=== PATIENT | male | born 1970 | race Caucasian/White ===

== ENCOUNTER 2022-06-16 05:57 | Outpatient (CLI) | payer OTHER, SELFPAY ==
--- OUTSIDE RECORDS SUMMARY | 2022-06-16 06:00 | XMS_ITS | Encounter Summary ---
:1970 Author Organization [facility] Address [address] [place] [address] Care Team Providers Name Role Phone Unavailable Primary Care Provider Unavailable Encounter Details Date Type Department Care Team Description 09/20/2016 Hospital Encounter HX NO MAPPING Jill King M.B. B.S., Jareth, M.S. Social History Tobacco Use Types Packs/Day Years Used Date Smoking Tobacco: Never Assessed Sex Assigned at Date Recorded Not on file documented as of this encounter Plan of Treatment Not on filedocumented as of this encounter Visit Diagnoses Not on filedocumented in this encounter
--- OUTSIDE RECORDS SUMMARY | 2022-06-16 06:00 | XMS_ITS | Encounter Summary ---
:1970 Author Organization [facility] Address [address] [place] [address] Care Team Providers Name Role Phone Unavailable Primary Care Provider Unavailable Encounter Details Date Type Department Care Team Description 09/27/2007 Hospital Encounter HX [facility] Mio Ceballos M.D. [facility], [place], [place] [address] (Wo rk) Social History Tobacco Use Types Packs/Day Years Used Date Smoking Tobacco: Never Assessed Sex Assigned at Date Recorded Not on file documented as of this encounter Plan of Treatment Not on filedocumented as of this encounter Visit Diagnoses Not on filedocumented in this encounter
--- OUTSIDE RECORDS SUMMARY | 2022-06-16 06:00 | XMS_ITS | Encounter Summary ---
:1970 Author Organization [facility] Address [address] [place] [address] Care Team Providers Name Role Phone Elsewhere, Pcp Primary Care Provider Unavailable Reason for Visit Reason Onset Date Comments Outpatient COVID-19 Testing 07/15/2020 Encounter Details Date Type Department Care Team Description 07/15/2020 External Outreach Department of Daniel Britton Infect ion Upper Internal Medicine in J, D.O. Respiratory (Primary [place], [place] [address] Dx) [address] [place] [id number] Social History Tobacco Use Types Packs/Day Years Used Date Smoking Tobacco: Never Sex Assigned at Date Recorded Not on file documented as of this encounter Progress Notes Suad Malloy LMihaelaP.N. - 07/15/2020 3:51 PM CST Encounter created for the drive-through COVID-19 testing. CIATE PROFESSOR COMPUTER SCIENCE documented in this encounter Miscellaneous Notes Result Encounter Note - Syl Alcala M.D. - 07/18/2020 3:17 PM CST Result reviewed. Positive for COVID-19. Patient notified via portal. Patient lacks high risk features and will follow with PCP or public health. MAA - Please send CFCT Low Risk Letter CIATE PROFESSOR COMPUTER SCIENCE documented in this encounter Plan of Treatment Not on filedocumented as of this encounter Procedures Procedure Name Priority Date/Time Associated Diagnosis Comme nts SARS CORONAVIRUS-2 Routine 07/15/2020 4:03 PM Infection Upper Results for this RNA, V ASSOCIATE PROFESSOR COMPUTER SCIENCE Respiratory procedure are i n the results section. documented in this encounter Results (ABNORMAL) SARS Coronavirus-2 RNA, V Symptomatic (07/15/2020 4:03 PM ASSOCIATE PROFESSOR COMPUTER SCIENCE) [facility] Method Time Signature SARS-CoV-2 Swab, 07/17/2020 [facility] Specimen Nasopharynx 12:05 AM Source ASSOCIATE PROFESSOR COMPUTER SCIENCE SARS CoV-2 Detected (C) Undetected 07/17/2020 [facility] RNA, TMA 12:05 AM ASSOCIATE PROFESSOR COMPUTER SCIENCE Comment: SARS-CoV-2 RNA present. ----ADDITIONAL INFORMATION---- This test is performed using the Aptima SARS-CoV-2 assay ([employer] which has received Emergency Use Authori zation (EUA) by the U.S. Food and Drug Administration. Fact sheets for this Emergency Use Autho rization (EUA) assay can be found at the following links: For Healthcare Providers: https://www.Sho[employer] a.gov/media/298040/download For Patients: https://www.fda.gov/media/ 814266/download Specimen Anatomical Collection Method Collection Time Receive d Time (Source) Location / / Volume Laterality Varies 07/15/2020 4:03 PM 0 2:06 (Nasopharynx) ASSOCIATE PROFESSOR COMPUTER SCIENCE AM ASSOCIATE PROFESSOR COMPUTER SCIENCE Daniel Britton D.O. LAB MICROBIOLOGY - GENERAL O RDERABLES Performing Organization Address City/State/ZIP Code Phon e Number [facility]- [address] [place] [id number] [place] [address] [place] [address] [address] documented in this encounter Visit Diagnoses Diagnosis Infection Upper Respiratory - Primary documented in this encounter Additional Health Concerns Infection Onset Date Last Indicated Resolved Time COVID19 Pending 07/15/2020 07/15/2020 07/17/2020 12:06 AM ASSOCIATE PROFESSOR COMPUTER SCIENCE documented as of this encounter Care Teams Rubber Production Machine Operator Relationship Specialty Start Date End Date Elsewhere, Pcp PCP - General Family Medicine 07/15/20 documented as of this encounter
--- OUTSIDE RECORDS SUMMARY | 2022-06-16 06:00 | XMS_ITS | Encounter Summary ---
:1970 Author Organization [facility] Address [address] [place] [address] Care Team Providers Name Role Phone Unavailable Primary Care Provider Unavailable Encounter Details Date Type Department Care Team Description 09/20/2016 Hospital Encounter HX NO MAPPING Trent Day M.D. [address] [place], [place] [phone] (Wo rk) Social History Tobacco Use Types Packs/Day Years Used Date Smoking Tobacco: Never Assessed Sex Assigned at Date Recorded Not on file documented as of this encounter Plan of Treatment Not on filedocumented as of this encounter Procedures Procedure Name Priority Date/Time Associated Diagnosis Comme nts CT HEAD WITHOUT IV Routine 09/20/2016 7:17 PM Res ults for this CONTRAST CLINICAL ASSISTANT procedure are i n the results section. documented in this encounter Results CT Head without IV Contrast (09/20/2016 7:17 PM CLINICAL ASSISTANT) Anatomical Region Laterality Modality Head N/A Computed Tomography Specimen (Source) Anatomical Collection Method Collection Time Re ceived Time Location / / Volume Laterality 09/20/2016 7:17 PM CLINICAL ASSISTANT Addenda Addendum by Provider, Jareth Priest 09/20/2016 7:17 PM CLINICAL ASSISTANT RAD^^^OW CT Head w o contrast 09/20/2016 19:17:00 Impressions 09/21/2016 6:35 AM CLINICAL ASSISTANT 1. Bilateral paranasal sinus disease. 2. ??No appreciable acute intracranial a bnormality. If clinically indicated MRI the brain without and with IV gadolinium would be more sensitive for evaluation of possible occ ult intracranial abnormalities, including early ischemic changes not apparent on CT. Narrative 09/21/2016 6:35 AM CLINICAL ASSISTANT EXAM: ??CT Head w/o contrast AGE: ??46 years old. GENDER: ??Male. INDICATION: ??slurred speech, left arm n umbness for 15-20 minutes this evening). COMPARISON: ??September 09, 2016 FINDINGS: ??Preliminary report generated by [facility]. No appreciable intracranial mass or hemo rrhage. No midline shift. No hydrocephalus. No evidence of acute isch emia. If clinically indicated MRI the brain wi thout and with IV gadolinium would be more sensitive for evaluation o f possible occult intracranial mass clearly ischemic randle es not apparent on CT. Frothy mucosal secretions within the lewis ateral maxillary sinuses, polypoid mucosal thickening both maxilla ry sinuses, near complete opacification of the right sphenoid sinu s. Procedure Note Jet Vallejo M.D. / ProviderSalma M.D. - 02/26/2017 EXAM: CT Head w/o contrast AGE: [age] years old. GENDER: Male. INDICATION: slurred speech, left arm num bness for 15-20 minutes this evening). COMPARISON: September 09, 2016 FINDINGS: Preliminary report generated b y [facility] radiology. No appreciable intracranial mass or hemo rrhage. No midline shift. No hydrocephalus. No evidence of acute isch emia. If clinically indicated MRI the brain wi thout and with IV gadolinium would be more sensitive for evaluation o f possible occult intracranial mass clearly ischemic randle es not apparent on CT. Frothy mucosal secretions within the lewis ateral maxillary sinuses, polypoid mucosal thickening both maxilla ry sinuses, near complete opacification of the right sphenoid sinu s. IMPRESSION: 1. Bilateral paranasal sinus disease. 2. No appreciable acute intracranial abn ormality. If clinically indicated MRI the brain without and with IV gadolinium would be more sensitive for evaluation of possible occ ult intracranial abnormalities, including early ischemic changes not apparent on CT. Marco Antonio Leal(Jose) IMLucas CT PROCEDURES documented in this encounter Visit Diagnoses Not on filedocumented in this encounter
--- OUTSIDE RECORDS SUMMARY | 2022-06-16 06:00 | XMS_ITS | Encounter Summary ---
:1970 Author Organization [facility] Address [address] [place] [address] Care Team Providers Name Role Phone Unavailable Primary Care Provider Unavailable Encounter Details Date Type Department Care Team Description 03/12/2008 Hospital Encounter HX [facility] Mio Ceballos M.D. [facility], [place], [place] [address] (Wo rk) Social History Tobacco Use Types Packs/Day Years Used Date Smoking Tobacco: Never Assessed Sex Assigned at Date Recorded Not on file documented as of this encounter Plan of Treatment Not on filedocumented as of this encounter Visit Diagnoses Not on filedocumented in this encounter
--- OUTSIDE RECORDS SUMMARY | 2022-06-16 06:00 | XMS_ITS | Encounter Summary ---
:1970 Author Organization [facility] Address [address] [place] [address] Care Team Providers Name Role Phone Unavailable Primary Care Provider Unavailable Encounter Details Date Type Department Care Team Description 09/21/2016 Hospital Encounter HX NO MAPPING Jill King M.B. B.S., Jareth, M.S. Social History Tobacco Use Types Packs/Day Years Used Date Smoking Tobacco: Never Assessed Sex Assigned at Date Recorded Not on file documented as of this encounter Plan of Treatment Not on filedocumented as of this encounter Procedures Procedure Name Priority Date/Time Associated Diagnosis Comme nts US CAROTID Routine 09/21/2016 7:09 AM Results f or this BILATERAL PURCHASE REQUEST EDITOR procedure are i n the results section. documented in this encounter Results US Carotid Bilateral (09/21/2016 7:09 AM PURCHASE REQUEST EDITOR) Anatomical Region Laterality Modality Head and Neck Bilateral Ultrasound Specimen (Source) Anatomical Collection Method Collection Time Re ceived Time Location / / Volume Laterality 09/21/2016 7:09 AM PURCHASE REQUEST EDITOR Addenda Addendum by Provider, Jareth Priest 09/21/2016 7:09 AM PURCHASE REQUEST EDITOR RAD^^^OW US Carotid Duplex Bilat 09/21/2016 07:09:02 Impressions 09/21/2016 8:10 AM PURCHASE REQUEST EDITOR 1. Slow velocities of right internal car otid artery. Suggest CTA or MRA of head/neck. FINDINGS: There is no carotid stenosis s een in the neck. However, the right internal carotid artery velocities are much slower than usual. For example, the mid internal carotid ar brittany has peak systolic velocity of 13 cm/s. Findings are nonspe cific, though can be seen with high-grade stenosis intracranially. Dissection is another possibility. Suggest CTA or MRA of head/ neck. Minimal amount of scattered atheromatous plaque. ??In the mid neck, bilateral vertebral arteries have normal antegrade flow. Measurement of a carotid stenosis, if pr esent, is based on velocity parameters that compare the residual int ernal carotid luminal diameter with that of the normal distal ICA in accordance with [place] Symptomatic Carotid Endarterect victor m Trial (NASCET). Narrative 09/21/2016 8:10 AM PURCHASE REQUEST EDITOR EXAM: US Carotid Duplex Bilat INDICATION: Transient Ischemic Attack/TI A AGE: 46 years-old COMPARISON: None. Procedure Note Rodrigo Lund M.D. / Zayda Bourgeois M.D. - 02/26/2017 EXAM: US Carotid Duplex Bilat INDICATION: Transient Ischemic Attack/TI A AGE: 46 years-old COMPARISON: None. IMPRESSION: 1. Slow velocities of right internal car otid artery. Suggest CTA or MRA of head/neck. FINDINGS: There is no carotid stenosis s een in the neck. However, the right internal carotid artery velocities are much slower than usual. For example, the mid internal carotid ar brittany has peak systolic velocity of 13 cm/s. Findings are nonspe cific, though can be seen with high-grade stenosis intracranially. Dissection is another possibility. Suggest CTA or MRA of head/ neck. Minimal amount of scattered atheromatous plaque. In the mid neck, bilateral vertebral arteries have normal antegrade flow. Measurement of a carotid stenosis, if pr esent, is based on velocity parameters that compare the residual int ernal carotid luminal diameter with that of the normal distal ICA in accordance with [place] Symptomatic Carotid Endarterect victor m Trial (NASCET). Suad Donnelly R.V.T., RGeorgieSMihaela IMG US PROCEDURES documented in this encounter Visit Diagnoses Not on filedocumented in this encounter
--- OUTSIDE RECORDS SUMMARY | 2022-06-16 06:00 | XMS_ITS | Encounter Summary ---
:1970 Author Organization [facility] Address [address] [place] [address] Care Team Providers Name Role Phone Unavailable Primary Care Provider Unavailable Encounter Details Date Type Department Care Team Description 09/27/2016 Hospital Encounter HX NO MAPPING Roc Rivers M.D. [address] [place], [place] [address] (Wo rk) Social History Tobacco Use Types Packs/Day Years Used Date Smoking Tobacco: Never Assessed Sex Assigned at Date Recorded Not on file documented as of this encounter Plan of Treatment Not on filedocumented as of this encounter Visit Diagnoses Not on filedocumented in this encounter
--- OUTSIDE RECORDS SUMMARY | 2022-06-16 06:00 | XMS_ITS | Encounter Summary ---
:1970 Author Organization [facility] Address [address] [place] [address] Care Team Providers Name Role Phone Unavailable Primary Care Provider Unavailable Encounter Details Date Type Department Care Team Description 05/14/2008 Hospital Encounter HX [facility] Mio Ceballos M.D. [facility], [place], [place] [phone] (Wo rk) Social History Tobacco Use Types Packs/Day Years Used Date Smoking Tobacco: Never Assessed Sex Assigned at Date Recorded Not on file documented as of this encounter Plan of Treatment Not on filedocumented as of this encounter Visit Diagnoses Not on filedocumented in this encounter
--- OUTSIDE RECORDS SUMMARY | 2022-06-16 06:00 | XMS_ITS | Encounter Summary ---
:1970 Author Organization [facility] Address [address] [place] [address] Care Team Providers Name Role Phone Unavailable [...] Name Priority Date/Time Associated Diagnosis Comme nts MR NECK ANGIOGRAM Routine 09/21/2016 11:00 AM Res ults for this WITHOUT AND WITH IV PLATE FITTER procedur e are in CONTRAST the results section. MR BRAIN WITHOUT Routine 09/21/2016 9:17 AM Resul ts for this AND WITH IV PLATE FITTER procedure are i n CONTRAST the results section. MR BRAIN ANGIOGRAM Routine 09/21/2016 9:15 AM Res ults for this WITHOUT IV CONTRAST PLATE FITTER procedur e are in the results section. DX ORBITS 4+ VIEWS Routine 09/21/2016 8:25 AM Res ults for this PLATE FITTER procedure are i n the results section. documented in this encounter Results MR Neck Angiogram without and with IV Contrast (09/21/2016 11:00 AM PLATE FITTER) Anatomical Region Laterality Modality Neck N/A Magnetic Resonance Specimen (Source) Anatomical Collection Method Collection Time Re ceived Time Location / / Volume Laterality 09/21/2016 11:00 AM PLATE FITTER Addenda Addendum by Provider, Jareth Priest 09/21/2016 11:00 AM PLATE FITTER RAD^^^OW MR Angio Neck w ??and w o contrast 09/21/2016 11:00:00 Impressions 09/21/2016 12:25 PM PLATE FITTER 1. 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 2. 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 3. Acute sinusitis. FINDINGS: MRI Brain: There are 2 punctate acute in farcts within the right holman radiata superior to the basal jonnathan glia (series 4 images 24, 27). These are in the right MCA distribu tion. There is mild chronic microangiopathy within the right peritri gonal periventricular white matter (series 6 image 23). Negative for hemorrhage, herniation, hydrocephalus, mass, or atrophy. MRA Neck: ??There is dissection of the r ight internal carotid artery that begins 4 cm from its origin and ext ends intracranially to its terminus. This is occlusive over 1 cm se gment just before it becomes intracranially. Along either side of the occlusion is narrowing of the true lumen. Aortic arch has conventi onal branch configuration. Vertebral arteries are left-dominant. Th e left carotids and lateral vertebrals are negative for focal stenos is, vessel cutoff, aneurysm, or vascular malformation. MRA Head: As described above, there is d issection of the right internal carotid artery extending to the carotid terminus. Intracranial arterial flow signal and mo rphology are otherwise negative for aneurysm or vascular malfor mation. Left posterior communicating artery is present. Right p osterior and anterior communicating arteries are absent or hyp oplastic. Other findings: The right sphenoid sinus is nearly completely opacified with inspissated secretions, f ungal infection, or polyp. Right maxillary sinus has air-fluid leve ls. Bilateral maxillary sinuses have bubbly secretions. Findings can be seen with acute sinusitis. Measurement of a carotid stenosis, if pr esent, is based on length parameters that compare the residual int ernal carotid luminal diameter with that of the normal distal ICA in accordance with [place] Symptomatic Carotid Endarterect victor m Trial (NASCET). Results discussed with Dr. Mirela garcia 09/21/2016 12:23 PM. Narrative 09/21/2016 12:25 PM PLATE FITTER EXAM: MR Brain w/ + w/o contrast, MR Ang io Neck w/ + w/o contrast, MR Angio Brain w/o contrast INDICATION: TIA AGE: 46 years-old TECHNIQUE: Without and with IV 8.1 mL Ga davist contrast. ??Brain MRI without and with contrast. Head MRA with out contrast. Neck MRA with and without contrast. Please see hospita list note regarding nurse stat called towards the end of this exam . COMPARISON: CT head 09/20/16. Procedure Note Rodrigo Lund M.D. / Zayda Bourgeois M.D. - 02/26/2017 EXAM: MR Brain w/ + w/o contrast, MR Ang io Neck w/ + w/o contrast, MR Angio Brain w/o contrast INDICATION: TIA AGE: 46 years-old TECHNIQUE: Without and with IV 8.1 mL Ga davist contrast. Brain MRI without and with contrast. Head MRA with out contrast. Neck MRA with and without contrast. Please see hospita list note regarding nurse stat called towards the end of this exam . COMPARISON: CT head 09/20/16. IMPRESSION: 1. 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 2. 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 3. Acute sinusitis. FINDINGS: MRI Brain: There are 2 punctate acute in farcts within the right holman radiata superior to the basal jonnathan glia (series 4 images 24, 27). These are in the right MCA distribu tion. There is mild chronic microangiopathy within the right peritri gonal periventricular white matter (series 6 image 23). Negative for hemorrhage, herniation, hydrocephalus, mass, or atrophy. MRA Neck: There is dissection of the rig ht internal carotid artery that begins 4 cm from its origin and ext ends intracranially to its terminus. This is occlusive over 1 cm se gment just before it becomes intracranially. Along either side of the occlusion is narrowing of the true lumen. Aortic arch has conventi onal branch configuration. Vertebral arteries are left-dominant. Th e left carotids and lateral vertebrals are negative for focal stenos is, vessel cutoff, aneurysm, or vascular malformation. MRA Head: As described above, there is d issection of the right internal carotid artery extending to the carotid terminus. Intracranial arterial flow signal and mo rphology are otherwise negative for aneurysm or vascular malfor mation. Left posterior communicating artery is present. Right p osterior and anterior communicating arteries are absent or hyp oplastic. Other findings: The right sphenoid sinus is nearly completely opacified with inspissated secretions, f ungal infection, or polyp. Right maxillary sinus has air-fluid leve ls. Bilateral maxillary sinuses have bubbly secretions. Findings can be seen with acute sinusitis. Measurement of a carotid stenosis, if pr esent, is based on length parameters that compare the residual int ernal carotid luminal diameter with that of the normal distal ICA in accordance with [place] Symptomatic Carotid Endarterect victor m Trial (NASCET). Results discussed with Dr. Mirela garcia 09/21/2016 12:23 PM. Isaias Leal(R) IMG MRI PROCEDURES MR Brain without and with IV Contrast (09/21/2016 9:17 AM PLATE FITTER) Anatomical Region Laterality Modality Head, Brain N/A Magnetic Resonance Specimen (Source) Anatomical Collection Method Collection Time Re ceived Time Location / / Volume Laterality 09/21/2016 9:17 AM PLATE FITTER Addenda Addendum by Provider, Jareth Priest 09/21/2016 9:17 AM PLATE FITTER RAD^^^OW MR Brain w ??and w o contrast 09/21/2016 09:17:47 Impressions 09/21/2016 12:25 PM PLATE FITTER 1. 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 2. 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 3. Acute sinusitis. FINDINGS: MRI Brain: There are 2 punctate acute in farcts within the right holman radiata superior to the basal jonnathan glia (series 4 images 24, 27). These are in the right MCA distribu tion. There is mild chronic microangiopathy within the right peritri gonal periventricular white matter (series 6 image 23). Negative for hemorrhage, herniation, hydrocephalus, mass, or atrophy. MRA Neck: ??There is dissection of the r ight internal carotid artery that begins 4 cm from its origin and ext ends intracranially to its terminus. This is occlusive over 1 cm se gment just before it becomes intracranially. Along either side of the occlusion is narrowing of the true lumen. Aortic arch has conventi onal branch configuration. Vertebral arteries are left-dominant. Th e left carotids and lateral vertebrals are negative for focal stenos is, vessel cutoff, aneurysm, or vascular malformation. MRA Head: As described above, there is d issection of the right internal carotid artery extending to the carotid terminus. Intracranial arterial flow signal and mo rphology are otherwise negative for aneurysm or vascular malfor mation. Left posterior communicating artery is present. Right p osterior and anterior communicating arteries are absent or hyp oplastic. Other findings: The right sphenoid sinus is nearly completely opacified with inspissated secretions, f ungal infection, or polyp. Right maxillary sinus has air-fluid leve ls. Bilateral maxillary sinuses have bubbly secretions. Findings can be seen with acute sinusitis. Measurement of a carotid stenosis, if pr esent, is based on length parameters that compare the residual int ernal carotid luminal diameter with that of the normal distal ICA in accordance with [place] Symptomatic Carotid Endarterect victor m Trial (NASCET). Results discussed with Dr. Mirela garcia 09/21/2016 12:23 PM. Narrative 09/21/2016 12:25 PM PLATE FITTER EXAM: MR Brain w/ + w/o contrast, MR Ang io Neck w/ + w/o contrast, MR Angio Brain w/o contrast INDICATION: TIA AGE: 46 years-old TECHNIQUE: Without and with IV 8.1 mL Ga davist contrast. ??Brain MRI without and with contrast. Head MRA with out contrast. Neck MRA with and without contrast. Please see hospita list note regarding nurse stat called towards the end of this exam . COMPARISON: CT head 09/20/16. Procedure Note Rodrigo Lund M.D. / Zayda Bourgeois M.D. - 02/26/2017 EXAM: MR Brain w/ + w/o contrast, MR Ang io Neck w/ + w/o contrast, MR Angio Brain w/o contrast INDICATION: TIA AGE: 46 years-old TECHNIQUE: Without and with IV 8.1 mL Ga davist contrast. Brain MRI without and with contrast. Head MRA with out contrast. Neck MRA with and without contrast. Please see hospita list note regarding nurse stat called towards the end of this exam . COMPARISON: CT head 09/20/16. IMPRESSION: 1. 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 2. 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 3. Acute sinusitis. FINDINGS: MRI Brain: There are 2 punctate acute in farcts within the right holman radiata superior to the basal jonnathan glia (series 4 images 24, 27). These are in the right MCA distribu tion. There is mild chronic microangiopathy within the right peritri gonal periventricular white matter (series 6 image 23). Negative for hemorrhage, herniation, hydrocephalus, mass, or atrophy. MRA Neck: There is dissection of the rig ht internal carotid artery that begins 4 cm from its origin and ext ends intracranially to its terminus. This is occlusive over 1 cm se gment just before it becomes intracranially. Along either side of the occlusion is narrowing of the true lumen. Aortic arch has conventi onal branch configuration. Vertebral arteries are left-dominant. Th e left carotids and lateral vertebrals are negative for focal stenos is, vessel cutoff, aneurysm, or vascular malformation. MRA Head: As described above, there is d issection of the right internal carotid artery extending to the carotid terminus. Intracranial arterial flow signal and mo rphology are otherwise negative for aneurysm or vascular malfor mation. Left posterior communicating artery is present. Right p osterior and anterior communicating arteries are absent or hyp oplastic. Other findings: The right sphenoid sinus is nearly completely opacified with inspissated secretions, f ungal infection, or polyp. Right maxillary sinus has air-fluid leve ls. Bilateral maxillary sinuses have bubbly secretions. Findings can be seen with acute sinusitis. Measurement of a carotid stenosis, if pr esent, is based on length parameters that compare the residual int ernal carotid luminal diameter with that of the normal distal ICA in accordance with [place] Symptomatic Carotid Endarterect victor m Trial (NASCET). Results discussed with Dr. Mirela garcia 09/21/2016 12:23 PM. Isaias Leal(Jose) BLANCA MRI PROCEDURES MR Brain Angiogram without IV Contrast (09/21/2016 9:15 AM PLATE FITTER) Anatomical Region Laterality Modality Head, Brain N/A Magnetic Resonance Specimen (Source) Anatomical Collection Method Collection Time Re ceived Time Location / / Volume Laterality 09/21/2016 9:15 AM PLATE FITTER Addenda Addendum by Provider, Jareth Priest 09/21/2016 9:15 AM PLATE FITTER RAD^^^OW MR Angio Brain w o contrast 09/21/2016 09:15:00 Impressions 09/21/2016 12:25 PM PLATE FITTER 1. 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 2. 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 3. Acute sinusitis. FINDINGS: MRI Brain: There are 2 punctate acute in farcts within the right holman radiata superior to the basal jonnathan glia (series 4 images 24, 27). These are in the right MCA distribu tion. There is mild chronic microangiopathy within the right peritri gonal periventricular white matter (series 6 image 23). Negative for hemorrhage, herniation, hydrocephalus, mass, or atrophy. MRA Neck: ??There is dissection of the r ight internal carotid artery that begins 4 cm from its origin and ext ends intracranially to its terminus. This is occlusive over 1 cm se gment just before it becomes intracranially. Along either side of the occlusion is narrowing of the true lumen. Aortic arch has conventi onal branch configuration. Vertebral arteries are left-dominant. Th e left carotids and lateral vertebrals are negative for focal stenos is, vessel cutoff, aneurysm, or vascular malformation. MRA Head: As described above, there is d issection of the right internal carotid artery extending to the carotid terminus. Intracranial arterial flow signal and mo rphology are otherwise negative for aneurysm or vascular malfor mation. Left posterior communicating artery is present. Right p osterior and anterior communicating arteries are absent or hyp oplastic. Other findings: The right sphenoid sinus is nearly completely opacified with inspissated secretions, f ungal infection, or polyp. Right maxillary sinus has air-fluid leve ls. Bilateral maxillary sinuses have bubbly secretions. Findings can be seen with acute sinusitis. Measurement of a carotid stenosis, if pr esent, is based on length parameters that compare the residual int ernal carotid luminal diameter with that of the normal distal ICA in accordance with [place] Symptomatic Carotid Endarterect victor m Trial (NASCET). Results discussed with Dr. Mirela garcia 09/21/2016 12:23 PM. Narrative 09/21/2016 12:25 PM PLATE FITTER EXAM: MR Brain w/ + w/o contrast, MR Ang io Neck w/ + w/o contrast, MR Angio Brain w/o contrast INDICATION: TIA AGE: 46 years-old TECHNIQUE: Without and with IV 8.1 mL Ga davist contrast. ??Brain MRI without and with contrast. Head MRA with out contrast. Neck MRA with and without contrast. Please see hospita list note regarding nurse stat called towards the end of this exam . COMPARISON: CT head 09/20/16. Procedure Note Rodrigo Lund M.D. / Zayda Bourgeois M.D. - 02/26/2017 EXAM: MR Brain w/ + w/o contrast, MR Ang io Neck w/ + w/o contrast, MR Angio Brain w/o contrast INDICATION: TIA AGE: 46 years-old TECHNIQUE: Without and with IV 8.1 mL Ga davist contrast. Brain MRI without and with contrast. Head MRA with out contrast. Neck MRA with and without contrast. Please see hospita list note regarding nurse stat called towards the end of this exam . COMPARISON: CT head 09/20/16. IMPRESSION: 1. 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 2. 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 3. Acute sinusitis. FINDINGS: MRI Brain: There are 2 punctate acute in farcts within the right holman radiata superior to the basal jonnathan glia (series 4 images 24, 27). These are in the right MCA distribu tion. There is mild chronic microangiopathy within the right peritri gonal periventricular white matter (series 6 image 23). Negative for hemorrhage, herniation, hydrocephalus, mass, or atrophy. MRA Neck: There is dissection of the rig ht internal carotid artery that begins 4 cm from its origin and ext ends intracranially to its terminus. This is occlusive over 1 cm se gment just before it becomes intracranially. Along either side of the occlusion is narrowing of the true lumen. Aortic arch has conventi onal branch configuration. Vertebral arteries are left-dominant. Th e left carotids and lateral vertebrals are negative for focal stenos is, vessel cutoff, aneurysm, or vascular malformation. MRA Head: As described above, there is d issection of the right internal carotid artery extending to the carotid terminus. Intracranial arterial flow signal and mo rphology are otherwise negative for aneurysm or vascular malfor mation. Left posterior communicating artery is present. Right p osterior and anterior communicating arteries are absent or hyp oplastic. Other findings: The right sphenoid sinus is nearly completely opacified with inspissated secretions, f ungal infection, or polyp. Right maxillary sinus has air-fluid leve ls. Bilateral maxillary sinuses have bubbly secretions. Findings can be seen with acute sinusitis. Measurement of a carotid stenosis, if pr esent, is based on length parameters that compare the residual int ernal carotid luminal diameter with that of the normal distal ICA in accordance with [place] Symptomatic Carotid Endarterect victor m Trial (NASCET). Results discussed with Dr. Mirela garcia 09/21/2016 12:23 PM. Isaias Leal(R) IMG MRI PROCEDURES DX Orbits 4+ Views (09/21/2016 8:25 AM PLATE FITTER) Anatomical Region Laterality Modality Skull N/A Radiographic Imaging Specimen (Source) Anatomical Collection Method Collection Time Re ceived Time Location / / Volume Laterality 09/21/2016 8:25 AM PLATE FITTER Addenda Addendum by Provider, Jareth Priest 09/21/2016 8:25 AM PLATE FITTER RAD^^^OW XR Orbits MRI Screening 09/21/2016 08:25:00 Impressions 09/21/2016 8:50 AM PLATE FITTER 1. ??No radiopaque foreign bodies in the bilateral orbits. Narrative 09/21/2016 8:50 AM PLATE FITTER EXAM: ??XR Orbits MRI Screening. DEMOGRAPHICS: ??46 years Male. 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 COMPARISON: ??None available FINDINGS: ??No radiopaque foreign bodies within the bilateral orbits. Procedure Note Jet Vallejo M.D. / ProviderSalma M.D. - 02/26/2017 EXAM: XR Orbits MRI Screening. DEMOGRAPHICS: 46 years Male. 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 COMPARISON: None available FINDINGS: No radiopaque foreign bodies w ithin the bilateral orbits. IMPRESSION: 1. No radiopaque foreign bodies in the b ilateral orbits. Denise Leal(R)(CT), RMihaelaT.(R) IMG DIAGNOSTIC IMAG ING PROCEDURES documented in this encounter Visit Diagnoses Not on filedocumented in this encounter
--- OUTSIDE RECORDS SUMMARY | 2022-06-16 06:00 | XMS_ITS | Encounter Summary ---
:1970 Author Organization [facility] Address [address] [place] [address] Care Team Providers Name Role Phone Unavailable Primary Care Provider Unavailable Encounter Details Date Type Department Care Team Description 10/22/2007 Hospital Encounter HX [facility] Mio Ceballos M.D. [facility], [place], [place] [address] (Wo rk) Social History Tobacco Use Types Packs/Day Years Used Date Smoking Tobacco: Never Assessed Sex Assigned at Date Recorded Not on file documented as of this encounter Plan of Treatment Not on filedocumented as of this encounter Visit Diagnoses Not on filedocumented in this encounter
--- OUTSIDE RECORDS SUMMARY | 2022-06-16 06:00 | XMS_ITS | Encounter Summary ---
:1970 Author Organization [facility] Address [address] [place] [address] Care Team Providers Name Role Phone Unavailable Primary Care Provider Unavailable Encounter Details Date Type Department Care Team Description 09/09/2016 Hospital Encounter HX NO MAPPING Roc Rivers M.D. [address] [place], [place] [id number] (Wo rk) Social History Tobacco Use Types Packs/Day Years Used Date Smoking Tobacco: Never Assessed Sex Assigned at Date Recorded Not on file documented as of this encounter Plan of Treatment Not on filedocumented as of this encounter Visit Diagnoses Not on filedocumented in this encounter
--- OUTSIDE RECORDS SUMMARY | 2022-06-16 06:00 | XMS_ITS | Encounter Summary ---
:[address] [facility] Address [address] [place] [address] Care Team Providers Name Role Phone Unavailable Primary Care Provider Unavailable Encounter Details Date Type Department Care Team Description 12/20/2007 Hospital Encounter HX [facility] Mio Ceballos M.D. [facility], [place], [place] [address] (Wo rk) Social History Tobacco Use Types Packs/Day Years Used Date Smoking Tobacco: Never Assessed Sex Assigned at Date Recorded Not on file documented as of this encounter Plan of Treatment Not on filedocumented as of this encounter Visit Diagnoses Not on filedocumented in this encounter
--- OUTSIDE RECORDS SUMMARY | 2022-06-16 06:00 | XMS_ITS | Encounter Summary ---
:1970 Author Organization [facility] Address [address] [place] [address] Care Team Providers Name Role Phone Elsewhere, Pcp Primary Care Provider Unavailable Encounter Details Date Type Department Care Team Description 07/15/2020 Admin Visit Department of Family Medicine, [address] [address] [facility] [phone] Social History Tobacco Use Types Packs/Day Years Used Date Smoking Tobacco: Never Sex Assigned at Date Recorded Not on file documented as of this encounter Plan of Treatment Not on filedocumented as of this encounter Visit Diagnoses Not on filedocumented in this encounter Additional Health Concerns Infection Onset Date Last Indicated Resolved Time COVID19 Pending 07/15/2020 07/15/2020 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
--- OUTSIDE RECORDS SUMMARY | 2022-06-16 06:00 | XMS_ITS | Clinical Summary ---
:1970 Author Organization [facility] Address [address] [place] [address] Care Team Providers Name Role Phone Elsewhere, Pcp Primary Care Provider Unavailable Source Comments Patient records contain information from all sites at [facility]. For routine questions regarding patient records, call [phone] during business hours, M-F 8:00 AM - 5:00 PM Central Time. Record requests for emergency care only can be directed to [phone] at any time.[facility] Social History Tobacco Use Types Packs/Day Years Used Date Smoking Tobacco: Never Sex Assigned at Date Recorded Not on file Plan of Treatment Health Maintenance Due Date Last Done Comments CT Colonography 1970 Cologuard 1970 Colonoscopy 1970 Colorectal Cancer Screening 1970 FIT 1970 HIV Screening 1970 Hepatitis B Vaccines (1 of 3 1972 - 3-dose series) Hepatitis C Screening 1970 Creatinine Level 08/21/2019 08/21/2018 Potassium Level 08/21/2019 08/21/2018 Sodium Level 08/21/2019 08/21/2018 COVID-19 Vaccine (3 - Booster 02/25/2021 12/31/2020, for Pfizer series) 12/09/2020 DTaP,Tdap,and Td Vaccines (2 03/10/2021 03/10/2011 - Td or Tdap) Fasting Glucose for Diabetes 08/21/2021 08/21/2018 Screening Depression Screening (Annual 09/10/2021 PHQ-2) Zoster Vaccines (1 of 2) 01/07/2022 Influenza Vaccine (#1) 2022 Lipid (Cholesterol) Screening 08/21/2023 08/21/2018 Pneumococcal vaccine (0-64 Aged Out No lo nger eligible based years) on patient's age to complete this to [facility] Insurance Payer Benefit Plan / Subscriber ID Effective Dates Phone Addre ss Type Group CIG[employer] CIGNA CHOICE [id number] 2018-Irvin [phone] [address] PPO FUND HRA TARIK t [facility] [id number] Care Teams Licensed Prosthetist/Orthotist Relationship Specialty Start Date End Date Elsewhere, Pcp PCP - General Family Medicine 07/15/20
--- OUTSIDE RECORDS SUMMARY | 2022-06-16 06:00 | XMS_ITS | Encounter Summary ---
:1970 Author Organization [facility] Address [address] [place] [address] Care Team Providers Name Role Phone Unavailable Primary Care Provider Unavailable Encounter Details Date Type Department Care Team Description 07/19/2007 Hospital Encounter HX [facility] Mio Ceballos M.D. [facility], [place], [place] [address] (Wo rk) Social History Tobacco Use Types Packs/Day Years Used Date Smoking Tobacco: Never Assessed Sex Assigned at Date Recorded Not on file documented as of this encounter Plan of Treatment Not on filedocumented as of this encounter Visit Diagnoses Not on filedocumented in this encounter
--- OUTSIDE RECORDS SUMMARY | 2022-06-16 06:02 | XMS_ITS | Clinical Summary ---
:1970 Author Organization [facility] [place] [address] Care Team Providers Name Role Phone Clinic, [facility] Primary Care Provider [phone] Allergies No known active allergies Medications Medication Sig Dispensed Refills Start Date End Date Status aspirin chewable 81 mg Take 81 mg by 0 Active chewable tablet mouth once daily with a meal. 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 Overview: Right Internal Carotid Artery Resolved Problems Problem Noted Date Resolved Date Rectal bleeding 06/05/2017 07/17/2017 Anticoagulation monitoring, INR range 2-3 09/27/2016 11/28/2016 Vision blurred 09/21/2016 12/11/2016 Overview: Right History of TIA (transient ischemic attack) 09/21/2016 10/03/2016 Immunizations Name Administration Dates Next Due Tdap 03/10/2011 Family History Medical History Relation Name Comments Diabetes Father Diabetes Paternal Grandmother Hypertension Paternal Grandmother Relation Name Status Comments Father Alive Mother Alive Paternal Grandmother Social History Tobacco Use Types Packs/Day Years Used Date Never Smoker Smokeless Tobacco: Never Used Tobacco Cessation: Counseling Given: Yes Alcohol Use Standard Drinks/Week Comments Not Currently 0 (1 standard drink = 0.6 oz pure alcoho l) occasional Sex Assigned at Date Recorded Not on file Obstetrics History Last Filed Vital Signs Vital Sign Reading Time Taken Comments Blood Pressure 132/88 10/18/2021 2:52 PM CATTERY OPERATOR Pulse 84 10/18/2021 2:22 PM CATTERY OPERATOR Temperature 36.9 ??C (98.5 ??F) 09/27/2016 12:56 AM CATTERY OPERATOR Respiratory Rate 16 10/28/2020 2:56 PM CATTERY OPERATOR Oxygen Saturation 97% 10/18/2021 2:22 PM CATTERY OPERATOR Inhaled Oxygen Concentration - - Weight 76.8 kg (169 lb 4.8 oz) 10/18/2021 2:22 PM CATTERY OPERATOR Height 166 cm (5' 5.35) 10/18/2021 2:22 PM CATTERY OPERATOR Body Mass Index 27.87 10/18/2021 2:22 PM CATTERY OPERATOR Plan of Treatment Health Maintenance Due Date Last Done Comments Hepatitis C screening for age 0401[birth year]07[birth year]1990 18-79 Colonoscopy through age 75 01/07/2017 Tetanus booster 03/10/2021 03/10/2011, 03/10/2011 COVID-19 vaccine series (3 - 06/02/2021 12/31/2020, 021 Booster for Pfizer series) Depression screening for age 12+ 10/28/2021 10/28/2020, 08/2018, 07/17/2017, Additional history exists Zoster (shingles) series for age 0401/07/2022 50+ (1 of 2) Influenza for age 50-64 05/11/2022 BMI (ht and wt on same day) for 10/18/2022 10/18/2021, 10/11, age 18+ 11/10/2019, Additional history exists Lipids for age 45-75 08/21/2023 08/21/2018, 09/21/2016, 03/10/2011, Additional history exists Tdap Completed 03/10/2011 Results Not on filefrom Last 3 Months Insurance Payer Benefit Plan / Subscriber ID Effective Dates Phone Addre ss Type Group [employer] [id number] 2018-Prese [address] nt [place] [id number] [id number] (Home) [place] [phone] [address] (Work) [place] [address] [employer] Employer 09/10/2000 [phone] ATT N [employer] (Work) PAYABLE 2 [place] [id number] Advance Directives Latest Code Status on File Code Status Date Activated Date Inactivated Comments Full Code 09/21/2016 6:49 PM 09/25/2016 5:31 PM Code Status Discussion: Discussed Full Code 09/20/2016 11:04 PM 09/21/2016 6:20 PM Care Teams Systems Consultant Relationship Specialty Start Date End Date Clinic, [facility] PCP - General 05/10/21 [address] [facility] E[place] [address]
== END 2022-06-16 05:58 | disposition home or self-care (01) ==
PROVIDERS: PCP Family Medicine; Visit Provider Internal Medicine
DX: Z12.11 Encounter for screening for malignant neoplasm of colon (principal); K64.8 Other hemorrhoids
CPT/HCPCS: 45378; J2250; J3010

== ENCOUNTER 2023-04-12 11:10 | Outpatient (CLI) | payer OTHER, SELFPAY | END 2023-04-12 11:11 | disposition home or self-care (01) | PROVIDERS: PCP Family Medicine; Visit Provider Family Medicine | DX: I10 Essential (primary) hypertension (principal); Z12.5 Encounter for screening for malignant neoplasm of prostate | CPT/HCPCS: 80048; 80061; 84153 ==

== ENCOUNTER 2024-04-14 14:43 | Outpatient (CLI) | payer OTHER, SELFPAY ==
--- OUTSIDE RECORDS SUMMARY | 2024-04-14 14:47 | XMS_ITS | Clinical Summary ---
Author Organization [facility] Address [place], [place] [address] Care Team Providers Care Time Motion Analyst Name Role Phone Clinic, [facility] Primary Care Pro vider Allergies No known active allergies Medications Medication Sig Dispensed Refills Start Date End Date Status aspirin chewable 81 mg chewable tablet Take 81 mg by mouth once daily with a meal. Active amLODIPine (NORVASC) 5 mg tablet Take 5 mg by mouth once daily. 10/30/2023 Active escitalopram oxalate (LEXAPRO) 10 mg tablet Take 10 mg by mouth every morning. 11/21/2023 Active lisinopriL (PRINIVIL; ZESTRIL) 20 mg tablet Take 20 mg by mouth once daily. 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 Overview: Right Internal Carotid Artery Vision blurred 09/21/2016 12/11/2016 Overview: Right History of TIA (transient ischemic attack) 09/21/2016 10/03/2016 Immunizations Name Administration Dates Next Due Tdap 04/12/2023,03/10/2011 Zoster (Shingrix-RZV, recombinant) 06/29/2023, Family History Medical History Relation Name Comments Diabetes Father Diabetes Paternal Grandmother Hypertension Paternal Grandmother Relation Name Status Comments Father Alive Mother Alive Paternal Grandmother Social History Tobacco Use Types Packs/Day Years Used Date Smoking Tobacco: Never Smokeless Tobacco: Never Tobacco Cessation:Counseling Given: Yes Alcohol Use Standard Drinks/Week Comments Not Currently 0 (1 standard drink = 0.6 oz pur e alcohol) PHQ-2 Answer Date Recorded PHQ-2 TOTAL SCORE 0 10/28/2020 Social Connections Answer Date Recorded Frequency of Communication with Friends and Fami ly Not on file 09/10/2021 Financial Resource Strain Answer Date R ecorded Difficulty of Paying Living Expenses Not on file 09/10/2021 Difficulty of Paying Living Expenses Not on file 09/10/2021 Sex and Gender Information Value Date Recorded Sex Assigned at Not on file Gender Identity Not on file Sexual Orientation Not on file Obstetrics History Last Filed Vital Signs Vital Sign Reading Time Taken Comments Blood Pressure 146/88 11/23/2023 1:13 PM CDT Pulse 73 11/23/2023 1:13 PM CDT Temperature 36.9 ??C (98.5 ??F) 09/27/2016 12:[address] Respiratory Rate 16 10/28/2020 2:56 PM ROVING MACHINE OPERATOR Oxygen Saturation 100% 11/23/2023 1:13 PM CDT Inhaled Oxygen Concentration - - Weight 75.9 kg (167 lb 6.4 oz) 09/26/2023 2:53 P M ROVING MACHINE OPERATOR Height 166 cm (5' 5.35) 09/26/2023 2:53 PM ROVING MACHINE OPERATOR Body Mass Index 27.56 09/26/2023 2:53 PM ROVING MACHINE OPERATOR Plan of Treatment Health Maintenance Due Date Last Done Comments HIV for age 15-65 01/07/1987 Hepatitis C screening for age 18-79 01/07/1990 Colonoscopy through age 75 01/07/2017 Depression screening for age 12+ 10/28/2021 10/28/2020, 08/21/2018, 07/17/2017, Additional history exists COVID-19 vaccine series ( season) 2023 12/31/2020, 12/09/2020 Lipids for age 45-75 08/21/2023 08/21/2018, 09/21/2016, 03/10/2011, Additional history exists Influenza for age 50-64 05/11/2024 BMI (ht and wt on same day) for age 18+ 09/26/2024 09/26/2023, 10/10/2022, 10/18/2021, Additional history exists Tetanus booster 04/12/2033 04/12/2023, 07/0 09/2010, 03/10/2011 Tdap Completed 04/12/2023, 03/10/2011 Zoster (shingles) series for age 50+ Completed 06/29/2023, 04/12/2023 Pneumococcal series for age 6-64 Aged Out No longer eligible based on patient's age to complete this topic Procedures Procedure Name Priority Date/Time Associated Diagnosis Comments LIPID PANEL W REFLEX MEASURED LDL Routine 08/21/2018 4:41 PM ROVING MACHINE OPERATOR Well adult exam from Last 3 Months or Most Recently Relevant to Health Maintenance Results * (ABNORMAL) LIPID PANEL W REFLEX MEASURED LDL (08/21/2018 4:41 PM ROVING MACHINE OPERATOR) CHOLESTEROL,TOTAL 181 100 - 199 mg/dL 08/21/2018 5:10 PM ROVING MACHINE OPERATOR [facility] TRIGLYCERIDES 125 <150 mg/dL 08/21/2018 5:10 PM ROVING MACHINE OPERATOR [facility] HDL CHOLESTEROL 35(L) >40 mg/dL 8 5:10 PM ROVING MACHINE OPERATOR [facility] NON-HDL CHOLESTEROL 146(H) <145 mg/dl 08/21/2018 5:10 PM ROVING MACHINE OPERATOR [facility] CHOL/HDL RATIO 5.17(H) <4.50 08/21/2018 5:10 PM ROVING MACHINE OPERATOR [facility] LDL CHOLESTEROL 121 <=130 mg/dL 08/21/2018 5:10 PM ROVING MACHINE OPERATOR [facility] PROVIDER ORDERED STATUS RANDOM 08/21/2018 5:10 PM ROVING MACHINE OPERATOR [facility] Blood BLOOD SPECIMEN / Unknown Venipuncture / Unknown 08/21/2018 4:41 PM ROVING MACHINE OPERATOR 08/21/2018 4:43 PM ROVING MACHINE OPERATOR Richard Johnson MD CHEMISTRY [address] [address] from Last 3 Months or Most Recently Relevant to Health Maintenance Advance Directives * Full Code (Latest Code Status on File) Date Activated Date Inactivated Comments 09/21/2016 6:49 PM 09/25/2016 5:31 PM Question Answer Comments Code Status Discussion: Discussed * Full Code Date Activated Date Inactivated Comments 09/20/2016 11:04 PM 09/21/2016 6:20 PM Care Teams Time Motion Analyst Relationship Specialty Start Date End Date Clinic, [facility] [address] [place] [address] PCP - General 05/10/21
== END 2024-04-14 14:44 | disposition home or self-care (01) ==
PROVIDERS: PCP Family Medicine; Visit Provider Family Medicine
DX: I10 Essential (primary) hypertension (principal); Z13.220 Encounter for screening for lipoid disorders; Z12.5 Encounter for screening for malignant neoplasm of prostate
CPT/HCPCS: 80048; 80061; G0103

== ENCOUNTER 2025-04-06 15:11 | Outpatient (CLI) | payer OTHER, SELFPAY | END 2025-04-06 15:12 | disposition home or self-care (01) | PROVIDERS: PCP Family Medicine; Visit Provider Family Medicine | DX: I10 Essential (primary) hypertension (principal); Z12.5 Encounter for screening for malignant neoplasm of prostate | CPT/HCPCS: 80048; 80061; G0103 ==